=== PATIENT | female | born 1975 | race Caucasian/White ===

== ENCOUNTER 2016-08-02 04:38 | Emergency (ER) | payer BC ==
[2016-08-02 05:53] LABS: BASOPHIL % 0.5 % (0-2); PLATELET COUNT 373 x10^3mcL (130-400)
[2016-08-02 06:10] LABS: RED CELL DISTRIBUTION WIDTH 17.2 % (11.5-14.5)
[2016-08-02 07:20] VITALS: BP 134/72
== END 2016-08-02 08:05 | disposition home or self-care (01) ==
LOC: ED 04:38
PROVIDERS: Emergency Medicine
DX: N94.6 Dysmenorrhea, unspecified (principal); N93.9 Abnormal uterine and vaginal bleeding, unspecified
CPT/HCPCS: Q0092